=== PATIENT | female | born 1980 | race Hispanic/Latino ===

== ENCOUNTER → 2023-12-14 | Outpatient (CLI) | payer BC ==
[~2023-12-14] MED LIST: PREN-196 PO
== END | disposition home or self-care (01) ==
LOC: RAH 10:03
PROVIDERS: ATTEND Internal Medicine
DX: Z12.31 Encounter for screening mammogram for malignant neoplasm of breast (principal); R92.323 Mammographic fibroglandular density, bilateral breasts; K76.0 Fatty (change of) liver, not elsewhere classified; R16.0 Hepatomegaly, not elsewhere classified; R74.01 Elevation of levels of liver transaminase levels
CPT/HCPCS: 76705; 77067